=== PATIENT | female | born 1980 | race Hispanic/Latino ===

== ENCOUNTER 2017-12-02 00:06 | Emergency (ER) | payer OTHER, MEDICARE ==
[~2017-12-02 00:06] MED LIST: ADVAIR IH; ALBUTEROL INHALER IH; TRINTELLEX PO; TYL3 PO
[2017-12-02 01:20] LABS: RAPID GROUP A STREP NEGATIVE (NEGATIVE)
== END 2017-12-02 01:40 | disposition home or self-care (01) ==
LOC: EDH 00:06
DX: J10.1 Influenza due to other identified influenza virus with other respiratory manifestations (principal)
CPT/HCPCS: 87804; 87880

== ENCOUNTER 2018-10-12 14:25 | Emergency (ER) | payer OTHER, MEDICARE ==
[2018-10-12] MEDS ORDERED: DEXAMETHASONE SOD PHOSPHATE 10MG/ML 1ML VIAL ONE (14:41)
[2018-10-12] MEDS ORDERED: LIDOCAINE HCL-MPF 1% 2ML VIAL ONE (14:41)
[2018-10-12] MEDS ORDERED: CEFTRIAXONE SODIUM 1 GM ONE (14:42)
== END 2018-10-12 15:13 | disposition home or self-care (01) ==
LOC: EDH 14:25
DX: J01.10 Acute frontal sinusitis, unspecified (principal); H66.002 Acute suppurative otitis media without spontaneous rupture of ear drum, left ear; Z98.890 Other specified postprocedural states
CPT/HCPCS: 96372 ×2; 99283; J0696; J1100; J3490

== ENCOUNTER 2019-01-30 14:13 | Emergency (ER) | payer OTHER, MEDICARE ==
[2019-01-30 15:29] LABS: BASOPHILS % (AUTO) 0.7 % (0.0-5.0); EOSINOPHILS % (AUTO) 2.6 % (0.0-8.0); HEMATOCRIT 37.9 % (36-48); LYMPHOCYTES % (AUTO) 29.2 % (21.0-51.0); MEAN CORPUSCULAR HEMOGLOBIN 31.5 pg (27.0-33.0); MEAN CORPUSCULAR HGB CONC 33.9 g/dL (32.0-36.0); MEAN CORPUSCULAR VOLUME 92.8 fL (79-99); MONOCYTES % (AUTO) 7.9 % (3.0-13.0); NEUTROPHILS % (AUTO) 59.6 % (40.0-77.0); NUCLEATED RED BLOOD CELLS 0.1 % (0.0-0.19); PLATELET COUNT (AUTO) 309 K/uL (130-400); RED BLOOD CELL COUNT(AUTO) 4.08 MIL/uL (4.00-5.50); RED CELL DISTRIBUTION WIDTH 13.7 % (11.0-15.5); WHITE BLOOD COUNT (AUTO) 6.5 K/uL (4.8-10.8)
[2019-01-30 15:40] LABS: CREATININE 0.7 mg/dL (0.5-1.5); POTASSIUM 3.7 mmol/L (3.5-5.1)
[2019-01-30 15:46] LABS: ALBUMIN 3.5 g/dL (3.5-5.0); BILIRUBIN,DIRECT 0.1 mg/dL (0.0-0.3); BILIRUBIN,TOTAL 0.2 mg/dL (0.2-1.0); TOTAL PROTEIN, SERUM 7.8 g/dL (6.0-8.3)
[2019-02-01 07:24] LABS: HEPATITIS A ANTIBODY IGM Negative (Negative); HEPATITIS B CORE IGM Negative (Negative); HEPATITIS Bs ANTIGEN SCREEN P Negative (Negative)
== END 2019-01-30 16:30 | disposition home or self-care (01) ==
LOC: EDH 14:13
DX: S61.235A Puncture wound without foreign body of left ring finger without damage to nail, initial encounter (principal); W46.1XXA Contact with contaminated hypodermic needle, initial encounter; Y93.89 Activity, other specified; Y92.218 Other school as the place of occurrence of the external cause; Y99.8 Other external cause status
CPT/HCPCS: 36415; 80048; 80074; 80076; 81025; 85025; 86701; 87340; 87390; 87520

== ENCOUNTER 2019-05-01 14:48 | Emergency (ER) | payer OTHER, MEDICARE ==
[2019-05-01] MEDS ORDERED: ONDANSETRON ODT 4 MG TAB ONE (15:53)
[2019-05-01 15:56] LABS: APPEARANCE,URINE Cloudy (CLEAR); BASOPHILS % (AUTO) 0.4 % (0.0-5.0); BILIRUBIN,URINE Small (NEGATIVE); COLOR,URINE Dark Yellow (YELLOW); EOSINOPHILS % (AUTO) 0.2 % (0.0-8.0); GLUCOSE, URINE (UA) Negative (NEGATIVE); HEMATOCRIT 39.8 % (36-48); KETONES,URINE Trace mg/dL (NEGATIVE); LEUKOCYTE ESTERASE ,URINE Negative (NEGATIVE); LYMPHOCYTES % (AUTO) 26.5 % (21.0-51.0); MEAN CORPUSCULAR HEMOGLOBIN 30.8 pg (27.0-33.0); MEAN CORPUSCULAR HGB CONC 33.7 g/dL (32.0-36.0); MEAN CORPUSCULAR VOLUME 91.3 fL (79-99); MONOCYTES % (AUTO) 12.7 % (3.0-13.0); NEUTROPHILS % (AUTO) 60.2 % (40.0-77.0); NITRATE,URINE Negative (NEGATIVE); OCCULT BLOOD,URINE Negative (NEGATIVE); PLATELET COUNT (AUTO) 303 K/uL (130-400); PROTEIN,URINE POS 1+ mg/dL (NEGATIVE); RED BLOOD CELL COUNT(AUTO) 4.36 MIL/uL (4.00-5.50); RED CELL DISTRIBUTION WIDTH 13.5 % (11.0-15.5); WHITE BLOOD COUNT (AUTO) 5.4 K/uL (4.8-10.8)
[2019-05-01 15:59] LABS: HCG,QUAL RESULT NEGATIVE (NEGATIVE)
[2019-05-01 16:07] LABS: POTASSIUM 3.5 mmol/L (3.5-5.1)
[2019-05-01 16:11] LABS: ALBUMIN 3.4 g/dL (3.5-5.0); BILIRUBIN,DIRECT 0.1 mg/dL (0.0-0.3); BILIRUBIN,TOTAL 0.3 mg/dL (0.2-1.0); TOTAL PROTEIN, SERUM 7.8 g/dL (6.0-8.3)
[2019-05-01 16:24] LABS: AMORPHOUS SEDIMENT,UR Few /LPF (None Seen); BACTERIA,URINE Few /HPF (None Seen); MUCUS,URINE Few LPF (None Seen); RBC,URINE None Seen /HPF (0-1); WBC,URINE 0-1 /HPF (0-1)
[2019-05-01] MEDS ORDERED: HYOSCYAMINE SULFATE 0.125 MG TAB.SUBL SL ONE (16:39)
[2019-05-01] MEDS ORDERED: KETOROLAC TROMETHAMINE 15MG/ML ONE (17:16)
[2019-05-01] MEDS ORDERED: ACETAMINOPHEN 325 MG TAB ONE (17:16)
[2019-05-01 17:45] LABS: OCCULT BLOOD STOOL SINGLE ONLY POSITIVE (NEGATIVE)
== END 2019-05-01 18:55 | disposition home or self-care (01) ==
LOC: EDH 14:48
DX: A09 Infectious gastroenteritis and colitis, unspecified (principal); Z98.890 Other specified postprocedural states
CPT/HCPCS: 36415; 80048; 80076; 81001; 81025; 82270; 83630; 83690; 85025; 87046; 87177; 87324; 96374; 99284; J1885

== ENCOUNTER → 2025-09-08 | Outpatient (CLI) | payer OTHER, MEDICAID ==
[~2025-09-08] MED LIST changes: +IOHEXOL 350 MG/ML 100ML INFUS..BTL IV ONE
--- NOTE | 2025-09-08 18:33 | CARDIOLOGY ---
RAD REPORT: [facility] CT ANGIO RADIOLOGY REPORT: CORONARY CT ANGIOGRAPHY DATE: Sep 08, 2025 QUALITY: Excellent CLINICAL HISTORY AND INDICATION: [ chest pain ] TECHNIQUE: After obtaining a preliminary yam curer image, contrast imaging performed on an [employer] [id number] scanner. A dedicated, limited window, coronary imaging protocol was used, with single breath-hold, retrospective ECG gating, and automated arrhythmia rejection. 100 cc of low osmolar contrast agent: Omnipaque 350 was delivered via a 18-gauge IV catheter in the right antecubital fossa, using a power injector and followed by 60 cc of normal saline bolus as a chaser. Collimated images were reformatted at 0.5 mm intervals, and sent to an offline independent workstation for interpretation, using 3D anatomic reconstructions: Curved multiplanar reconstructions, maximum intensity projections, and multiplanar imaging. No metoprolol was administered prior to scanning due to low baseline heart rate. 0.8 mg SL nitroglycerin was given. CORONARY ARTERY DESCRIPTIONS: The coronary arteries arise in normal position. Left main coronary artery: Normal caliber vessel that bifurcates into the LAD and LCx. No stenosis. Left anterior descending coronary artery: Normal caliber vessel and gives rise to diagonal and septal branches. No stenosis. Left circumflex coronary artery: Normal caliber, nondominant and gives rise to a large OM branch. No stenosis. Right coronary artery: Large, dominant vessel giving rise to the PL and PDA branches. No stenosis. CAD-RADs: 0, absence of CAD. Thoracic Aorta: Normal diameter. Yamel Armas MD Cardiovascular Disease [facility] YAMEL ARMAS MD Sep 08, 2025 18:33
== END | disposition home or self-care (01) ==
LOC: RAH 08:56
PROVIDERS: ATTEND Internal Medicine Cardiovascular Disease
DX: R07.9 Chest pain, unspecified (principal)
CPT/HCPCS: 75574; Q9967